=== PATIENT | female | born 1950 | race Caucasian/White ===

== ENCOUNTER 2017-12-16 09:00 | Emergency (ER) | payer OTHER ==
[2017-12-16 10:04] LABS: ADD MAN DIFF? NO
[2017-12-16 10:10] LABS: BASOPHIL # 0.1 10^3/ul (0.0-0.1); BASOPHILS % 1.2 % (0.0-2.0); EOSINOPHILS # 0.5 10^3/ul (0.0-0.5); HEMOGLOBIN 12.5 g/dl (12.0-16.0); LYMPHOCYTES % 21.6 % (15.0-51.0); MEAN CORPUSCULAR HEMOGLOBIN 30.6 pg (29.0-33.0); MEAN CORPUSCULAR HGB CONC 32.1 g/dl (32.0-37.0); MEAN CORPUSCULAR VOLUME 95.6 fl (82.0-101.0); MONOCYTE # 0.7 10^3/ul (0.3-0.9); MONOCYTES % 7.4 % (0.0-11.0); NEUTROPHIL # 5.8 10^3/ul (1.6-7.5); NEUTROPHILS % 64.4 % (39.0-77.0); PLATELET COUNT 308 10^3/UL (140-415); RED BLOOD COUNT 4.08 10^6/ul (4.20-5.40); RED CELL DISTRIBUTION WIDTH 14.2 % (11.5-14.5)
[2017-12-16 10:26] LABS: INR 0.93; PARTIAL THROMBOPLASTIN TIME 25.5 Sec (25.0-35.0); PROTIME 12.6 Sec (11.9-14.9)
[2017-12-16 10:38] LABS: ALANINE AMINOTRANSFERASE 39 IU/L (13-69); ALBUMIN/GLOBULIN RATIO 1.25; ALKALINE PHOSPHATASE 70 IU/L (42-121); ANION GAP 13 (8-16); BILIRUBIN,INDIRECT 0.2 mg/dl (0-1.1); BILIRUBIN,TOTAL 0.2 mg/dl (0.2-1.3); BLOOD UREA NITROGEN 25 mg/dl (7-20); CALCIUM 9.6 mg/dl (8.4-10.2); CARBON DIOXIDE 33 mmol/L (21-31); CHLORIDE 98 mmol/L (97-110); CREATININE 0.57 mg/dl (0.44-1.00); GLUCOSE 192 mg/dl (70-220); POTASSIUM 4.4 mmol/L (3.5-5.1); SODIUM 140 mmol/L (135-144); TOTAL PROTEIN 7.2 g/dl (6.1-8.1)
[2017-12-16 10:41] LABS: ASPARTATE AMINO TRANSFERASE 28 IU/L (15-46)
[2017-12-16 10:48] LABS: TROPONIN-I < 0.012 ng/ml (0.00-0.12)
[2017-12-16] MEDS: OXYCODONE/ACETAMINOPHEN (5/325) TAB PO (14:59)
== END 2017-12-16 16:34 | disposition home or self-care (01) ==
LOC: E/R 09:00
DX: S12.111A Posterior displaced Type II dens fracture, initial encounter for closed fracture (principal); I10 Essential (primary) hypertension; E11.9 Type 2 diabetes mellitus without complications; R20.0 Anesthesia of skin; W18.39XA Other fall on same level, initial encounter; Y92.009 Unspecified place in unspecified non-institutional (private) residence as the place of occurrence of the external cause; Z79.82 Long term (current) use of aspirin; Z79.84 Long term (current) use of oral hypoglycemic drugs
CPT/HCPCS: 36415; 70450; 71045; 72125; 80053; 84484; 85025; 85610; 85730; 99285-25